=== PATIENT | male | born 1955 | race Caucasian/White ===

== ENCOUNTER → 2017-09-14 | Outpatient (CLI) | payer BC ==
[~2017-09-14] MED LIST: 00186-0370-20 IH; ABILIFY5 MG PO; BACTRIM DS 8001 TAB PO; CIALIS20 MG PO; CITRACAL PLUS1 TAB; COMBIVENT INH14.7 GM IH; CONTRAVE1 TER PO; DESYREL 100MG100 MG PO; DOXYCYCLINE 10100 MG PO; EFFEXOR XR75 MG/CAP PO; FARXIGA10 PO; FLEXERIL 1010 MG/TAB PO; LEXAPRO 10MG10 MG PO; LIPOFLAVONOID1 GEL TP; PEN-VEE K500 MG PO; PRIL40 PO; SUPRENZA15 MG PO; TEMOVATE0.05% TP; VALIUM 5MG T5 MG/TAB PO; VITAMIN C PUR1000 MG PO
== END ==
LOC: SUN.DIA 12:30
DX: Z01.89 Encounter for other specified special examinations (principal)

== ENCOUNTER → 2017-10-16 | Outpatient (CLI) | payer BC | LOC: SUN.DIA 13:04 | DX: E11.9 Type 2 diabetes mellitus without complications (principal); Z79.4 Long term (current) use of insulin; E78.5 Hyperlipidemia, unspecified; I10 Essential (primary) hypertension; E66.9 Obesity, unspecified; Z68.41 Body mass index [BMI] 40.0-44.9, adult; Z71.3 Dietary counseling and surveillance; F17.210 Nicotine dependence, cigarettes, uncomplicated | CPT/HCPCS: G0108 ==

== ENCOUNTER → 2017-10-31 | Outpatient (CLI) | payer BC | LOC: SUN.DIA 08:30 | DX: E11.9 Type 2 diabetes mellitus without complications (principal); Z79.4 Long term (current) use of insulin; E78.5 Hyperlipidemia, unspecified; I10 Essential (primary) hypertension; E66.9 Obesity, unspecified; Z68.41 Body mass index [BMI] 40.0-44.9, adult; Z71.3 Dietary counseling and surveillance; F17.210 Nicotine dependence, cigarettes, uncomplicated | CPT/HCPCS: G0108 ==

== ENCOUNTER → 2018-01-01 | Outpatient (CLI) | payer BC | LOC: SUN.DIA 13:22 | DX: E11.9 Type 2 diabetes mellitus without complications (principal); Z79.4 Long term (current) use of insulin; E78.5 Hyperlipidemia, unspecified; I10 Essential (primary) hypertension; E66.9 Obesity, unspecified; Z68.41 Body mass index [BMI] 40.0-44.9, adult; Z71.3 Dietary counseling and surveillance; F17.210 Nicotine dependence, cigarettes, uncomplicated | CPT/HCPCS: G0108 ==

== ENCOUNTER → 2021-01-06 | Outpatient (CLI) | payer MEDICARE ==
[~2021-01-06] MED LIST changes: +ABILIFY2 MG PO; +CENTRUM1 TA1 PO; +CITRACAL + D CA1 TAB PO; +EFFEXOR XR37.5 MG/CA PO; +GLUCOPHAGE500 MG/TAB PO; +GRALISE600 MG PO; +JARDIANCE10 PO; +LEXAPRO20 MG PO; +LIPITOR 40MG TA40 MG PO; +LUNESTA3 MG PO; +OZEMPIC0.25 MG/0. SQ; +TRESIBA100 UNIT/1 SQ; +VIAGRA50 M1 PO; +VITAMINC1000TA PO; +ZESTORETIC 25 M1 TAB PO
== END ==
LOC: COL.RAD 13:33
DX: Z12.2 Encounter for screening for malignant neoplasm of respiratory organs (principal); Z87.891 Personal history of nicotine dependence

== ENCOUNTER 2021-02-09 08:46 | Day surgery (SDC) | payer MEDICARE ==
[~2021-02-09] VITALS: Ht 185.4 cm; Wt 150.2 kg
[~2021-02-09 08:46] MED LIST changes: -ABILIFY2 MG PO; -CENTRUM1 TA1 PO; -CITRACAL + D CA1 TAB PO; -EFFEXOR XR37.5 MG/CA PO; -GLUCOPHAGE500 MG/TAB PO; -GRALISE600 MG PO; -JARDIANCE10 PO; -LEXAPRO20 MG PO; -LIPITOR 40MG TA40 MG PO; -LUNESTA3 MG PO; -OZEMPIC0.25 MG/0. SQ; -TRESIBA100 UNIT/1 SQ; -VIAGRA50 M1 PO; -VITAMINC1000TA PO; -ZESTORETIC 25 M1 TAB PO
[2021-02-09] MEDS ORDERED: VITAMINC1000TA PO (10:12)
[2021-02-09] MEDS ORDERED: ABILIFY2 MG PO (10:12)
[2021-02-09] MEDS ORDERED: LIPITOR 40MG TA40 MG PO (10:13)
[2021-02-09] MEDS ORDERED: FLEXERIL 1010 MG/TAB PO (10:13)
[2021-02-09] MEDS ORDERED: LEXAPRO20 MG PO (10:14)
[2021-02-09] MEDS ORDERED: LUNESTA3 MG PO (10:14)
[2021-02-09] MEDS ORDERED: JARDIANCE10 PO (10:14)
[2021-02-09] MEDS ORDERED: VALIUM 5MG T5 MG/TAB PO (10:14)
[2021-02-09] MEDS ORDERED: GRALISE600 MG PO (10:15)
[2021-02-09] MEDS ORDERED: TRESIBA100 UNIT/1 SQ (10:15)
[2021-02-09] MEDS ORDERED: GLUCOPHAGE500 MG/TAB PO (10:16)
[2021-02-09] MEDS ORDERED: ZESTORETIC 25 M1 TAB PO (10:16)
[2021-02-09] MEDS ORDERED: CITRACAL + D CA1 TAB PO (10:16)
[2021-02-09] MEDS ORDERED: CENTRUM1 TA1 PO (10:17)
[2021-02-09] MEDS ORDERED: VIAGRA50 M1 PO (10:17)
[2021-02-09] MEDS ORDERED: OZEMPIC0.25 MG/0. SQ (10:17)
[2021-02-09 10:18] VITALS: BP 112/68; PULSE 75; TEMP 99.1
[2021-02-09] MEDS ORDERED: EFFEXOR XR37.5 MG/CA PO (10:18)
[2021-02-09 10:55] VITALS: BP 90/53; PULSE 75; TEMP 98.2
[2021-02-09 11:10] VITALS: BP 103/69; PULSE 73
[2021-02-09 11:25] VITALS: BP 100/65; PULSE 67
--- NOTE | 2021-02-09 11:35 | NUR ---
Pt returned via cart to recliner in GI bay 4 after colonoscopy. Pts VSS-see flowsheet. Given pb&j sandwich and water. BG prior to eating 111. Pt denies complaint but asking when he can leave as soon as he returned from procedure. Pts vitals remain stable. Tolerated 2 cups of water and sandwich. IV removed, sterile 2x2 applied with coban. Pt dressed independently. Discharge teaching completed, pt verbalized understanding. Dr Negro in to see pt post procedure. Pt refused wheelchair. Ambulated with steady gait to private vehicle with to drive pt home.
== END 2021-02-09 11:35 | disposition home or self-care (01) ==
LOC: SDCO 08:46
DX: Z12.11 Encounter for screening for malignant neoplasm of colon (principal); D12.2 Benign neoplasm of ascending colon; D12.4 Benign neoplasm of descending colon; K63.5 Polyp of colon; K57.30 Diverticulosis of large intestine without perforation or abscess without bleeding; K64.0 First degree hemorrhoids; I10 Essential (primary) hypertension; E11.42 Type 2 diabetes mellitus with diabetic polyneuropathy; J44.9 Chronic obstructive pulmonary disease, unspecified; G47.33 Obstructive sleep apnea (adult) (pediatric); G89.29 Other chronic pain; E66.01 Morbid (severe) obesity due to excess calories; E11.9 Type 2 diabetes mellitus without complications; F32.9 Major depressive disorder, single episode, unspecified; F41.9 Anxiety disorder, unspecified; Z79.899 Other long term (current) drug therapy; Z85.46 Personal history of malignant neoplasm of prostate; Z85.828 Personal history of other malignant neoplasm of skin
CPT/HCPCS: J2704; J7030

== ENCOUNTER → 2023-07-24 | Outpatient (CLI) | payer MEDICARE ==
[~2023-07-24] MED LIST changes: +ABILIFY2 MG PO; +CENTRUM1 TA1 PO; +CITRACAL + D CA1 TAB PO; +EFFEXOR XR37.5 MG/CA PO; +GLUCOPHAGE500 MG/TAB PO; +GRALISE600 MG PO; +JARDIANCE10 PO; +LEXAPRO20 MG PO; +LIPITOR 40MG TA40 MG PO; +LUNESTA3 MG PO; +OZEMPIC0.25 MG/0. SQ; +TRESIBA100 UNIT/1 SQ; +VIAGRA50 M1 PO; +VITAMINC1000TA PO; +ZESTORETIC 25 M1 TAB PO
== END ==
LOC: COL.RAD 12:08
DX: M48.02 Spinal stenosis, cervical region (principal); M48.061 Spinal stenosis, lumbar region without neurogenic claudication; Z85.46 Personal history of malignant neoplasm of prostate
CPT/HCPCS: A9575

== ENCOUNTER 2024-04-27 11:28 | Emergency (ER) | payer MEDICARE ==
[~2024-04-27] VITALS: Ht 182.9 cm; Wt 127.3 kg
[2024-04-27 11:36] VITALS: TEMP 97.8
[2024-04-27] MEDS ORDERED: NS 500 ML IV ONE (12:00)
[2024-04-27 12:24] LABS: BASO % 0.3 % (0.0-2.0); EOS # 0.1 K/mm3 (0.0-0.7); EOS % 0.5 % (0.0-4.0); GRAN # 8.1 K/mm3 (1.4-6.5); GRAN % 68.8 % (42.2-75.2); LYMPH # 2.1 K/mm3 (1.2-3.4); LYMPH % 17.8 % (20.0-51.0); MEAN CELL VOLUME 89 fl (80.0-100.0); MEAN CORPUSCULAR HGB CONC 34 g/dl (33.0-37.0); MEAN PLATELET VOLUME 9.8 fl (7.4-10.4); MONO # 1.5 K/mm3 (0.1-0.6); MONO % 12.3 % (1.7-9.3); PLATELET COUNT 220 K/mm3 (130-400); RED BLOOD COUNT 6.45 M/mm3 (4.20-5.60); REDCELL DISTRIBUTION WIDTH-CV 14.1 % (11.5-14.5)
[2024-04-27 12:25] LABS: HEMATOCRIT 57.1 % (42.0-52.0); HEMOGLOBIN 19.1 g/dl (13.5-18.0); MEAN CORPUSCULAR HEMOGLOBIN 30 pg (27-31)
[2024-04-27 12:40] LABS: ALANINE AMINOTRANSFERASE 23 U/L (0-55); ALBUMIN 3.7 g/dL (3.4-4.8); ALKALINE PHOSPHATASE 114 U/L (40-150); ANION GAP 13 mmol/L (7-16); AST,SGOT 18 U/L (5-34); BILIRUBIN,TOTAL 0.5 mg/dL (0.2-1.2); BLOOD UREA NITROGEN 17 mg/dL (8-26); CALCIUM 9.4 mg/dL (8.4-10.2); CHLORIDE 101 mEq/L (98-107); CREATININE, serum 0.81 mg/dL (0.72-1.25); GLUCOSE 90 mg/dL (70-99); POTASSIUM 4.1 mEq/L (3.5-4.5); SODIUM 138 mEq/L (136-145); TOTAL PROTEIN 7.8 g/dl (6.2-8.1)
[2024-04-27 12:49] LABS: TROPONIN-I < 0.010 ng/mL (0.00-0.033)
[2024-04-27 14:13] LABS: ARTERIAL BLD GAS O2 SATURATION 94.2 % (92-100); ARTERIAL BLD GAS TCO2 CT 28.1; ARTERIAL BLOOD GAS BASE EXCESS 1.9 (-2-2); ARTERIAL BLOOD GAS HCO3 26.8 meq/L (22-26); ARTERIAL BLOOD GAS PCO2 42.8 mmHg (35-45); ARTERIAL BLOOD GAS PO2 70.8 mmHg (80-100); ARTERIAL BLOOD GAS pH 7.42 (7.35-7.45)
[2024-04-27] MEDS ORDERED: PREDNISONE20 MG PO (14:34)
[2024-04-27] MEDS ORDERED: PROAIR HFA0.09 MG/AC IH (14:35)
--- NOTE | 2024-04-27 15:02 | NUR ---
PT QUALIFIES WITHOUT ABULATION SPO2 85% ON RA AT REST. NEEDS 3L TO MAINTAIN O2 SPO2 92%
--- NOTE | 2024-04-27 15:11 | NUR ---
SW contacted by ED physician providing patient needed O2 before departure of ED. Electronic chart reviewed, documenation printed, and faxed to local choice of [facility]. weight caller staff contacted and informed of documenation completed.
[2024-04-27 16:21] VITALS: BP 119/74; PULSE 70
== END 2024-04-27 16:27 | disposition home or self-care (01) ==
LOC: COL.ER 11:28
PROVIDERS: Physician Assistant
DX: R06.02 Shortness of breath (principal); F17.210 Nicotine dependence, cigarettes, uncomplicated
CPT/HCPCS: J7040